=== PATIENT | female | born 1990 | race Two or more races ===

== ENCOUNTER 2024-09-13 19:13 | Emergency (ER) | payer BC, OTHER ==
[~2024-09-13] VITALS: Ht 152.4 cm; Wt 56.6 kg
[2024-09-13] MEDS: ALBUTEROL SULF 2.5 MG/0.5ML(0.5%) NEB SOLN NEB ONE (19:49)
[2024-09-13] MEDS: IPRATROPIUM BROM 0.5 MG/2.5ML INH SOL NEB ONE (19:49)
--- NOTE | 2024-09-13 19:57 | DVH ---
EXAM: XR Chest, 1 View CLINICAL INDICATION: SOB TECHNIQUE: Frontal view of the chest. COMPARISON: None FINDINGS: LUNGS AND PLEURAL SPACES: Unremarkable. No consolidation. No pneumothorax. HEART: Unremarkable. No cardiomegaly. MEDIASTINUM: Unremarkable. Normal mediastinal contour. BONES/JOINTS: Unremarkable. No acute fracture. OTHER FINDINGS: . None. . IMPRESSION: No acute cardiopulmonary process.
--- NOTE | 2024-09-13 20:09 | ED.PDOC ---
SOB-HPI HPI Comments 34 y.o female presents to the ED fro a chief complaint of SOB associated with a productive cough and body aches that started 2 weeks ago. Patient was diagnosed with pneumonia a week ago and took antibiotics that she states have not been effective. Patient reports today she had a coughing fit in which he was unable to control causing increased SOB which prompt her to come into the ED today. Patient's SPO2 read 99% on room air upon ED arrival. She denies any chest pain, fever, chills, nausea, vomiting, diarrhea. Chief Complaint: Shortness of Breath Time Seen by MD: 19:17 Reviewed notes: Nurses Notes, Medications, Allergies Information Source: Patient Mode of Arrival: Ambulatory Severity: Moderate Timing: Weeks (2) Duration: Since onset Context: At Rest PE Risk Factors: None History of: Recent URI Modifying Factors: Nothing Associated Signs and Symptoms: Cough If cough with SOB: Productive Past Medical History PAST MEDICAL HISTORY: Anxiety Past Medical History (Other): Recently diagnosed with pneumonia and completed antibiotics. Surgical History: Denies all surgeries NURSE SITTER History: No Pertinent NURSE SITTER History Family History Family History: Reviewed,noncontributory to illness Social History Smoker: Non-Smoker Alcohol: Denies ETOH Use Drugs: Denies Drug Use Lives In: Home Constitutional: reports: weakness; denies: chills, diaphoresis, fatigue, fever, malaise, sweats, others EENTM: denies: blurred vision, double vision, ear bleeding, ear discharge, ear drainage, ear pain, ear ringing, eye pain, eye redness, hearing loss, mouth pain, mouth swelling, nasal discharge, nose bleeding, nose congestion, nose pain, photophobia, tearing, throat pain, throat swelling, voice changes, others Respiratory: reports: cough, SOB at rest, shortness of breath, SOB with excertion; denies: hemoptysis, orthopnea, stridor, wheezing, others Cardiovascular: denies: chest pain, dizzy spells, diaphoresis, Dyspnea on exer tion, edema, irregular heart beat, left arm pain, lightheadedness, palpitations, PND, syncope, others Gastrointestinal: denies: abdomen distended, abdominal pain, blood streaked bowels, constipated, diarrhea, dysphagia, difficulty swallowing, hematemesis, melena, nausea, poor appetite, poor fluid intake, rectal bleeding, rectal pain, vomiting, others Genitourinary: denies: abnormal vagina bleeding, burning, dyspareunia, dysuria, flank pain, frequency, hematuria, incontinence, pain, , vagina discharge, urgency, others Neurological: denies: dizziness, fainting, headache, left sided numbness, left sided weakness, numbness, paresthesia, pre-existing deficit, right sided numbness, right sided weakness, seizure, speech problems, tingling, tremors, weakness, others Musculoskeletal: reports: muscle pain; denies: back pain, gout, joint pain, joint swelling, muscle stiffness, neck pain, others Integumetry: denies: bruises, change in color, change in hair/nails, dryness, laceration, lesions, lumps, rash, wounds, others Allergic/Immunocompromised: denies: Difficulty Healing, Frequent Infections, Hives, Itching, others Hematologic/Lymphatic: denies: anemia, blood clots, easy bleeding, easy bruising, swollen glands, others Endocrine: denies: excessive hunger, excessive sweating, excessive thirst, excessive urination, flushing, intolerance to cold, intolerance to heat, unexplained weight gain, unexplained weight loss, others Psychiatric: denies: anxiety, bipolar disorder, depression, hopeless, panic disorder, schizophrenia, sleepless, suicidal, others All Other Systems: Reviewed and Negative Physical Exam General Appearance: Moderate Distress (Patient has some moderately ill 34-year-old female.), Normal HEENT: Normal ENT Inspection, Pharynx Normal, TMs Normal Neck: Full Range of Motion, Non-Tender, Normal, Normal Inspection Respiratory: Chest Non-Tender, Lungs Clear, No Accessory Muscle Use, No Respiratory Distress, Normal Breath Sounds, Other (Unremarkable auscultation bilateral lung hernandez.) Cardiovascular: No Edema, No JVD, No Murmur, No Gallop, Normal Peripheral Pulses, Regular Rate/Rhythm Breast Exam: Deferred Gastrointestinal: No Organomegaly, Non Tender, No Pulsatile Mass, Normal Bowel Sounds, Soft Genitalia: Deferred Pelvic: Deferred, No cerv. Motion Tender Rectal: Deferred Extremities: No calf tenderness, Normal capillary refill, Normal inspection, Normal range of motion, Non-tender, No pedal edema Musculoskeletal : Apperance: Normal Neurologic: Alert, No Motor Deficits, Normal Affect, Normal Mood, No Sensory Deficits Cerebellar Function: Normal Reflexes: Normal Skin: Dry, Normal Color, Warm Lymphatic: No Adenopathy Was a procedure done? Was a procedure done?: No Differential Dx Differential Diagnosis: Asthma, Bronchitis, Pneumonia, Respiratory Distress, URI X-Ray, Labs, Meds, VS Vital Signs Date Time Temp Pulse Resp B/P (MAP) Pulse Ox O2 Delivery O2 Flow Rate FiO2 09/13/24 21:06 98.1 97 18 101/52 (68) 99 98.1 09/13/24 21:06 97 18 99 Room Air 09/13/24 19:47 18 100 Room Air* 0 21 09/13/24 19:26 22 99 Room Air* 0 21 09/13/24 19:26 98.1 130 22 138/80 (99) 99 Lab Test 09/13/24 19:32 09/13/24 19:30 Range/Units Influenza Type A Antigen Negative Negative Influenza Type B Antigen Negative Negative SARS-CoV-2 Antigen (Rapid) Negative NEGATIVE Urine Color Light-yellow Yellow Urine Clarity Clear Clear Urine pH 5.5 5.0-9.0 Urine Specific [place] 1.009 1.001-1.035 Urine Protein Negative Negative Urine Ketones Negative Negative Urine Blood 2+ H Negative /uL Urine Nitrite Negative Negative Urine Bilirubin Negative Negative Urine Urobilinogen Normal Negative mg/dL Urine Leukocyte Esterase Negative Negative /uL Urine RBC 1 0 - 4 /hpf Urine Microscopic WBC 1 0-5 /HPF Urine Squamous Epithelial Cells Few <5 /hpf Urine Bacteria Few H None Seen /hpf Urine Glucose Normal Normal mg/dL Current Medications Medications (Trade) Dose Ordered Sig/Luis Route Start Time Stop Time Status Last Admin Albuterol (Ventolin Medneb) 2.5 mg ONCE ONCE NEB 09/13/24 19:45 09/13/24 19:46 DC 09/13/24 19:49 Ipratropium [place] (Atrovent Medneb) 0.5 mg ONCE ONCE NEB 09/13/24 19:45 09/13/24 19:46 DC 09/13/24 19:49 Dexamethasone Sodium Phosphate (Decadron Injection) 10 mg ONCE ONCE IM 09/13/24 20:45 09/13/24 20:46 DC 09/13/24 20:55 X-Ray, Labs, Meds, VS Comment All studies performed the ED were evaluated by me personally. Swabs studies wer e unremarkable for any COVID or influenza a/B. Chest x-ray was unremarkable for any consolidation or intrapulmonary concerns. From my perspective today, the patient appears to be suffering from a viral upper respiratory illness. Advised medication as needed for symptomatic relief. Patient had good response to treatment rendered. Advised good hydration and healthy nutrition throughout. Time of 1ST Reevaluation: 21:20 Reevaluation 1ST: Improved Consultation: PCP Patient Education/Counseling: Diagnosis, Treatment, Prognosis Family Education/Counseling: Diagnosis, Treatment, No Family Present Departure 1 Departure Time of Disposition: 21:21 Impression: Primary Impression: Viral upper respiratory illness Disposition: HOME / SELF CARE / HOMELESS Condition: Stable Additional Instructions: Advise utilizing medication as needed for symptomatic relief as well as good hy dration and healthy nutrition throughout illness event. e-Prescriptions Benzonatate (Benzonatate) 100 Mg Cap 1 CAP PO TID, #20 CAP Prov: LUIS RASHID PAC 09/13/24 Acetaminophen (Acetaminophen) 500 Mg Tab 500 MG PO Q4HP PRN, #30 TAB Prov: LUIS RASHID PAC 09/13/24 Albuterol Sulfate (Albuterol Sulfate Hfa) 108 Mcg/Act Aer 108 MCG IN Q4HP PRN, #1 AER Prov: LUIS RASHID PAC 09/13/24 Discharged With: Self, Friend Critical Care Note Critical Care Time?: No Stability Stability form required: No I personally scribed for LUIS RASHID PAC ([email or web address]) on 09/13/24 at 20:09. Electronically submitted by Serene Cardoza ([facility]). LUIS RASHID PAC Sep 13, 2024 20:09
[2024-09-13 20:15] LABS: Urine Bacteria FEW /hpf (None Seen); Urine Blood 2+ /uL (Negative); Urine Clarity Clear (Clear); Urine Color Light-Yellow (Yellow); Urine Protein, UAD Negative (Negative); Urine Specific Gravity 1.009 (1.001-1.035); Urine Squamous Epithelial Cell FEW /hpf (<5); Urine Urobilinogen Normal (Negative); Urine WBC 1 /HPF (0-5); Urine pH 5.5 (5.0-9.0)
[2024-09-13] MEDS: DexAMETHasone SOD PHOS 10MG/1ML VIAL INJ IM ONE (20:42)
[2024-09-13 20:48] LABS: COVID19 ANTIGEN SOFIA FIA NEGATIVE (NEGATIVE); Rapid Influenza A Negative (Negative); Rapid Influenza B Negative (Negative)
[2024-09-13] MEDS: DexAMETHasone SOD PHOS 4 MG/1ML SDV INJ IM ONE (20:55)
[2024-09-13] MEDS ORDERED: ALBU108A5 IN (21:22)
[2024-09-13] MEDS ORDERED: ACET500T58 PO (21:22)
[2024-09-13] MEDS ORDERED: BENZ100C97 PO (21:23)
[2024-09-13 22:06] VITALS: BP 105/57; PULSE 94; RESP 17; TEMP 98; O2SAT 100
== END 2024-09-13 22:07 | disposition home or self-care (01) ==
LOC: ER 19:13
DX: J06.9 Acute upper respiratory infection, unspecified (principal); B97.89 Other viral agents as the cause of diseases classified elsewhere; Z20.822 Contact with and (suspected) exposure to COVID-19
CPT/HCPCS: 36415; 71045; 81001; 87426; 87804; 94640; 96372; J1100